=== PATIENT | female | born 1980 | race Caucasian/White ===

== ENCOUNTER 2020-05-21 16:07 | Outpatient (REF) | payer MEDICAID, SELFPAY | END 2020-05-21 16:08 | disposition home or self-care (01) | LOC: HO.LAB 16:07 | PROVIDERS: PCP Nurse Practitioner Family; Visit Provider Internal Medicine | DX: Z20.828 Contact with and (suspected) exposure to other viral communicable diseases (principal) | CPT/HCPCS: C9803; U0003 ==

== ENCOUNTER 2020-06-16 19:51 | Emergency (ER) | payer MEDICAID, SELFPAY ==
[2020-06-16 21:14] VITALS: BP 156/88; PULSE 90; RESP 18; TEMP 37; O2SAT 98
--- NOTE | 2020-06-16 23:36 | ED.GENADULT ---
HPI - General Adult General Chief complaint: General Medical Stated complaint: Flu like symptoms Time Seen by Provider: 06/16/20 23:36 Source: patient Mode of arrival: ambulatory History of Present Illness HPI narrative: This is a 39-year-old female who presents with 1 week of sore throat without fevers, chills, but states she has had a dry cough but no shortness of breath/chest pain/palpitations. She states that she was COVID-19 negative tested last Tuesday but states that her throat remains sore. Related Data Allergies Allergy/AdvReac Type Severity Reaction Status Date / Time naproxen [From NAPROSYN] Allergy Intermediate STOMACH Unverified 02/28/20 15:15 UPSET ibuprofen [From MOTRIN] Allergy Unknown GI UPSET Unverified 02/28/20 15:15 methocarbamol [From ROBAXIN] Allergy Unknown ITCHY Unverified 02/28/20 15:15 Review of Systems Review of Systems: Pertinent positives and negatives as stated in HPI 10 point review systems is otherwise negative. [facility] Past Medical History Source: nursing notes reviewed Medical History Bruna's disease Hypothyroid Social History Social History Advance Directives: No Advance Directives Information Provided: Yes Physical Exam Vital Signs: Vital Signs: Last Vital Signs Temp 98.6 F 06/16/20 21:14 Pulse 92 06/17/20 00:04 Resp 18 06/17/20 00:04 BP 149/75 H 06/17/20 00:04 Pulse Ox 98 06/17/20 00:04 Body Mass Index 3.8 VITAL SIGNS: Reviewed. GENERAL: Well developed, well nourished, in no acute distress. EYES: PERRLA, EOMI intact without pain EARS: Ext canals without abnormality, TMs non-bulging and non-erythematous OROPHARYNX: no oral lesions noted, posterior pharynx clear and erythematous without noted tonsillar enlargement/erythema/exudates NECK: Supple, no adenopathy LUNGS: Normal breath sounds. No adventitious sounds or accessory muscle use. SpO2<98> CARDIOVASCULAR: Regular rate and rhythm without noted murmurs, no JVD or lower extremity edema. ABDOMEN: Soft, non-tender, non-distended with bowel sounds. No rigidity. No guarding. No palpable masses or hernias noted NEUROLOGIC: Alert and oriented x 4. Course Course Course Narrative: 39-year-old female with history and clinical presentation most consistent with viral pharyngitis but will do a rapid strep which was noted to be negative. Patient was advised to use saline gargles and to alternate Tylenol ibuprofen as needed for pain control. And to follow-up with her primary care provider by calling the office in the morning. Discharge Plan Discharge Clinical Impression: Acute viral pharyngitis Patient Disposition: Home, Self-Care Instructions: Pharyngitis (ED) Additional Instructions: 1. Please utilize saline gargles (this can be constructed at home by using warm water and table salt) and gargle for approximately 5-10 minutes 3 to 4 times a day. 2. You can alternate [id number] Tylenol/ibuprofen as needed for additional pain control. 3. Please follow-up with your primary care provider by calling the office in the morning. Referrals: Physician,Unknown [Primary Care Provider] - 2 days (Sore throat)
[2020-06-17 00:04] VITALS: BP 149/75; PULSE 92; RESP 18; O2SAT 98
== END 2020-06-17 01:08 | disposition home or self-care (01) ==
PROVIDERS: Emergency Provider Student in an Organized Health Care Education/Training Program
DX: J02.9 Acute pharyngitis, unspecified (principal)
CPT/HCPCS: 87071; 87880; 99283; 99284

== ENCOUNTER 2020-06-25 16:49 | Outpatient (REF) | payer MEDICAID, SELFPAY | END 2020-06-25 16:50 | disposition home or self-care (01) | LOC: HO.LAB 16:49 | PROVIDERS: Visit Provider Internal Medicine | DX: Z20.822 Contact with and (suspected) exposure to COVID-19 (principal) | CPT/HCPCS: 36415; C9803; U0003 ==

== ENCOUNTER 2020-07-07 16:12 | Outpatient (REF) | payer MEDICAID, SELFPAY | END 2020-07-07 16:13 | disposition home or self-care (01) | LOC: HO.LAB 16:12 | PROVIDERS: Visit Provider Internal Medicine | DX: Z20.822 Contact with and (suspected) exposure to COVID-19 (principal) | CPT/HCPCS: 36415; C9803; U0003 ==

== ENCOUNTER 2020-09-01 15:32 | Outpatient (REF) | payer MEDICAID, SELFPAY | END 2020-09-01 15:33 | disposition home or self-care (01) | LOC: HO.LAB 15:32 | PROVIDERS: Visit Provider Internal Medicine | DX: Z20.822 Contact with and (suspected) exposure to COVID-19 (principal) | CPT/HCPCS: 36415; C9803; U0003; U0005 ==

== ENCOUNTER 2020-09-04 14:37 | Outpatient (REF) | payer MEDICAID, SELFPAY | END 2020-09-04 14:38 | disposition home or self-care (01) | LOC: HO.LAB 14:37 | PROVIDERS: Visit Provider Internal Medicine | DX: Z20.822 Contact with and (suspected) exposure to COVID-19 (principal) | CPT/HCPCS: 36415; C9803; U0003; U0005 ==

== ENCOUNTER 2020-09-26 15:17 | Outpatient (REF) | payer MEDICAID, SELFPAY | END 2020-09-26 15:18 | disposition home or self-care (01) | LOC: HO.LAB 15:17 | PROVIDERS: Visit Provider Internal Medicine | DX: Z20.822 Contact with and (suspected) exposure to COVID-19 (principal) | CPT/HCPCS: C9803; U0003; U0005 ==

== ENCOUNTER 2020-10-08 14:09 | Outpatient (REF) | payer MEDICAID, SELFPAY ==
[2020-10-08 14:49] LABS: COVID-19 Test Negative (Negative); IDNOW Serial# 55D5AD1C
== END 2020-10-08 14:10 | disposition home or self-care (01) ==
LOC: HO.LAB 14:09
PROVIDERS: Visit Provider Internal Medicine
DX: Z20.822 Contact with and (suspected) exposure to COVID-19 (principal)
CPT/HCPCS: 36415; 87635; C9803

== ENCOUNTER 2020-11-07 15:10 | Outpatient (REF) | payer MEDICAID, SELFPAY ==
[2020-11-07 15:31] LABS: COVID-19 Test Negative (Negative)
== END 2020-11-07 15:11 | disposition home or self-care (01) ==
LOC: HO.LAB 15:10
PROVIDERS: Visit Provider Internal Medicine
DX: Z20.822 Contact with and (suspected) exposure to COVID-19 (principal)
CPT/HCPCS: 36415; 87635; C9803

== ENCOUNTER 2021-03-27 15:05 | Outpatient (REF) | payer MEDICAID, SELFPAY ==
[2021-03-27 15:31] LABS: COVID-19 Test Negative (Negative)
== END 2021-03-27 15:06 | disposition home or self-care (01) ==
LOC: HO.LAB 15:05
PROVIDERS: PCP Nurse Practitioner Family; Visit Provider Internal Medicine
DX: Z20.822 Contact with and (suspected) exposure to COVID-19 (principal)
CPT/HCPCS: 36415; 87635; C9803

== ENCOUNTER 2021-04-23 14:32 | Outpatient (REF) | payer MEDICAID, SELFPAY ==
[2021-04-23 14:56] LABS: COVID-19 Test Negative (Negative)
== END 2021-04-23 14:33 | disposition home or self-care (01) ==
LOC: HO.LAB 14:32
PROVIDERS: PCP Nurse Practitioner Family; Visit Provider Internal Medicine
DX: Z20.822 Contact with and (suspected) exposure to COVID-19 (principal)
CPT/HCPCS: 36415; 87635; C9803

== ENCOUNTER → 2021-09-09 09:28 | Outpatient (BNVA) | payer MEDICAID, SELFPAY | PROVIDERS: PCP Nurse Practitioner Family; Referring Provider Nurse Practitioner Family; Visit Provider Physician Assistant | DX: Z13.89 Encounter for screening for other disorder (principal) ==

== ENCOUNTER → 2021-09-30 08:00 | Outpatient (BNVA) | payer MEDICAID, SELFPAY | PROVIDERS: PCP Nurse Practitioner Family; Visit Provider Surgery | DX: Z13.89 Encounter for screening for other disorder (principal) ==

== ENCOUNTER 2021-10-05 | Outpatient (REF) | payer MEDICAID, SELFPAY ==
[2021-10-06 14:58] LABS: H Pylori Breath Test Positive (Negative)
== END 2021-10-05 00:01 | disposition home or self-care (01) ==
LOC: HO.LNP
PROVIDERS: Visit Provider Surgery
DX: E03.9 Hypothyroidism, unspecified (principal); E06.3 Autoimmune thyroiditis; K21.9 Gastro-esophageal reflux disease without esophagitis; E66.01 Morbid (severe) obesity due to excess calories
CPT/HCPCS: 83013

== ENCOUNTER 2021-10-05 10:43 | Outpatient (REF) | payer MEDICAID, SELFPAY ==
--- NOTE | ~2021-10-05 | XR_ITS ---
EXAMINATION: XR CHEST CLINICAL INFORMATION: Bariatric service evaluation. E66.01. COMPARISON: Chest radiographs 01/08/2019, 10/27/2017 TECHNIQUE: 2 views of the chest were obtained. FINDINGS: The lungs are clear. The vascularity is normal. The heart is normal in size. There is no airspace opacity or effusion. The hilar and mediastinal contours and bony structures are unremarkable. XR/XR chest 2V IMPRESSION: Unremarkable examination.
--- NOTE | 2021-10-05 10:55 | ECG_ITS ---
Test Reason : OBESITY Blood Pressure : / mmHG Vent. Rate : 061 BPM Atrial Rate : 061 BPM P-R Int : 154 ms QRS Dur : 092 ms QT Int : 436 ms P-R-T Axes : 017 038 012 degrees QTc Int : 438 ms Normal sinus rhythm Normal ECG When compared with ECG of 08-JAN-2019 17:09, No significant change was found Referred By: Henrik Dasilva Electronically Signed By:MIKEY STERN
[2021-10-05 11:08] LABS: MANUAL DIFF FLAG NO
[2021-10-05 11:55] LABS: Eosinophils Absolute Auto 0.1 X10*3/uL (0.0-0.4); Eosinophils Percent Auto 1.2 % (0-4); Hematocrit 40.2 % (37.0-47.0); Hemoglobin 13.6 g/dl (12.0-16.0); Imm Gran Abs Auto 0.02 X10*3/uL (0.00-0.03); Imm Gran Pct Auto 0.4 % (0.0-0.4); Lymphocytes Absolute Auto 1.8 X10*3/uL (1.2-4.9); Lymphocytes Percent Auto 36.5 % (20-40); Mean Corpuscular HGB Conc 33.8 g/dl (31.0-35.0); Mean Corpuscular Hemoglobin 30.4 pg (27.0-33.0); Mean Corpuscular Volume 89.7 fL (80.0-98.0); Mean Platelet Volume 9.9 fL (9.4-12.3); Monocytes Absolute Auto 0.3 X10*3/uL (0.1-1.2); Neutrophils Absolute Auto 2.9 x10*3/uL (2.0-8.3); Neutrophils Percent Auto 56.9 % (45-73); Platelet Count 172 X10*3/uL (160-400); Red Blood Count 4.48 X10*6/uL (4.20-5.50); Red Cell Distribution Width 12.5 % (11.0-16.0)
[2021-10-05 11:56] LABS: Estimated Average Glucose 91 mg/dL; Hemoglobin A1c % 4.8 %
[2021-10-05 12:37] LABS: Alanine Aminotransferase 34 U/L (0-31); Albumin Level 4.1 g/dL (3.5-5.0); Alkaline Phosphatase 100 U/L (39-117); Anion Gap 9 (12-20); Aspartate Amino Transferase 26 U/L (5-31); Bilirubin Total 0.7 mg/dL (0.0-1.0); Blood Urea Nitrogen 6 mg/dL (9-16); C Reactive Protein 0.61 mg/dL (< or = 0.50); Calcium 9.1 mg/dL (8.4-10.2); Carbon Dioxide 31 mmol/L (22-29); Chloride 106 mmol/L (96-108); Cholesterol 178 mg/dL; Estimated Glomerular Filt Rate > 60; Glucose Random 119 mg/dL (60-115); HDL Cholesterol 39 mg/dL; Iron 110 mcg/dL (30-160); LDL Cholesterol Calculated 126 mg/dl; Percent Iron Saturation 36 % (15-50); Potassium 3.8 mmol/L (3.3-5.1); Sodium 142 mmol/L (135-145); Total Iron Binding Capacity 308 mcg/dL (228-428); Total Protein 7.2 g/dL (6.5-8.0); Triglycerides 69 mg/dL; Unsaturated Iron Binding 198 ug/dL
[2021-10-05 13:10] LABS: Ferritin 81 ng/mL (10-250); TSH reflex Free T4 0.94 uIU/mL (0.32-4.0); Vitamin D 25-OH Total 16.5 ng/mL (>30)
[2021-10-05 13:15] LABS: Folate 12.6 ng/mL (> or = 4.0); Vitamin B12 263 pg/mL (200-900)
[2021-10-05 13:36] LABS: Insulin 41 uU/mL (2-29)
[2021-10-06 11:27] LABS: Calcium (PTHI) 8.9 mg/dL (8.6-10.2); PTHI 70 pg/mL (16-77)
[2021-10-09 06:12] LABS: Vitamin B1 9 nmol/L (8-30)
[2021-10-09 13:47] LABS: Zinc 70 mcg/dL (60-130)
[2021-10-09 21:11] LABS: Vitamin A 37 mcg/dL (38-98)
== END 2021-10-05 10:44 | disposition home or self-care (01) ==
LOC: HO.LAB 10:43
PROVIDERS: PCP Nurse Practitioner Family; Visit Provider Surgery
DX: Z01.818 Encounter for other preprocedural examination (principal); E66.01 Morbid (severe) obesity due to excess calories; E03.9 Hypothyroidism, unspecified; E06.3 Autoimmune thyroiditis; K21.9 Gastro-esophageal reflux disease without esophagitis; Z11.0 Encounter for screening for intestinal infectious diseases
CPT/HCPCS: 36415; 71046; 80053; 80061; 82306; 82607; 82728; 82746; 83013; 83036; 83525; 83540; 83970; 84425; 84443; 84590; 84630; 85025; 86140; 93005; 99211

== ENCOUNTER → 2021-10-12 11:00 | Outpatient (BNVA) | payer OTHER, SELFPAY | PROVIDERS: PCP Nurse Practitioner Family; Visit Provider Counselor Mental Health | DX: F33.0 Major depressive disorder, recurrent, mild (principal); E03.9 Hypothyroidism, unspecified; E66.01 Morbid (severe) obesity due to excess calories | CPT/HCPCS: 90791 ==

== ENCOUNTER → 2021-10-13 08:08 | Outpatient (BNVA) | payer MEDICAID, SELFPAY | PROVIDERS: PCP Nurse Practitioner Family; Visit Provider Dietitian, Registered | DX: E66.01 Morbid (severe) obesity due to excess calories (principal) | CPT/HCPCS: 97802 ==

== ENCOUNTER 2023-01-11 15:01 | Emergency (ER) | payer MEDICAID, SELFPAY ==
--- NOTE | ~2023-01-11 | XR_ITS ---
EXAMINATION: XR CHEST CLINICAL INFORMATION: Cough. COMPARISON: 10/05/2021 chest radiographs. TECHNIQUE: 2 views of the chest were obtained. FINDINGS: No significant abnormality is noted involving the heart, lungs, mediastinum, bony thorax or soft tissues. XR/XR chest 2V IMPRESSION: No acute cardiopulmonary process.
[2023-01-11 15:33] VITALS: BP 175/94; PULSE 77; RESP 20; TEMP 36.8; O2SAT 98; BMI 40.2
--- NOTE | 2023-01-11 15:34 | ED.SOB ---
HPI - SOB/Dyspnea General Chief Complaint: Upper Respiratory Symptoms Stated Complaint: bronchitis? Time Seen by Provider: 01/11/23 15:52 Source: patient and RN notes reviewed Mode of arrival: ambulatory Limitations: no limitations History of Present Illness HPI Narrative: this is a 42-year-old female presenting to the emergency department with complaints of productive cough x1.5 weeks. Patient reports that she has had hacking cough which has been keeping her up at night. She also admits to having ear pain, headaches chest wall pain which only occurs with coughing. She denies any fevers, chills, palpitations, shortness of breath, abdominal pain, nausea, vomiting, or diarrhea. She was seen by an urgent care facility last week and was prescribed inhaler however she was unable to pick this up at the pharmacy because she has been feeling so tired. Denies any sick contacts. No other complaints or concerns at this time MD elicited complaint: shortness of breath and cough Timing: constant Severity: moderate Exacerbating factors: nothing Relieving factors: nothing Associated symptoms: denies other symptoms Treatment prior to arrival: none Related Data Home Medications Medication Instructions Recorded Confirmed levothyroxine 88 mcg tablet 88 mcg PO DAILY 09/09/21 09/30/21 Previous Rx's Medication Instructions Recorded amoxicillin 500 mg capsule 500 mg PO Q12H #28 caps 10/07/21 cholecalciferol (vitamin D3) 125 125 mcg PO DAILY #30 caps 10/07/21 mcg (5,000 unit) capsule clarithromycin 500 mg tablet 500 mg PO Q12H #28 tabs 10/07/21 mecobalamin (vitamin B12) 1,000 1,000 mcg sublingual DAILY #30 tabs 10/07/21 mcg disintegrating tablet,sublingual omeprazole 40 mg capsule,delayed 40 mg PO DAILY #14 caps 10/07/21 release benzonatate 200 mg capsule 200 mg PO TID PRN cough #14 caps 01/11/23 Allergies Allergy/AdvReac Type Severity Reaction Status Date / Time naproxen [From NAPROSYN] Allergy Intermediate STOMACH Verified 09/30/21 09:25 UPSET ibuprofen [From MOTRIN] Allergy Unknown GI UPSET Verified 09/30/21 09:25 methocarbamol [From ROBAXIN] Allergy Unknown ITCHY Verified 09/30/21 09:25 Review of Systems Review of Systems: Yes all other systems are reviewed and are negative Constitutional: Constitutional: Reports as per [facility] [place] Past Medical History Attestation statement: The following information was validated with the patient. Medical History Anxiety Back pain GERD (gastroesophageal reflux disease) Bruna's disease Hypothyroid Morbid obesity Surgical History Hx of section Hx of cholecystectomy Hx of hysterectomy Hx of removal of cyst Hx of tubal ligation Family History Family History Mother Lung disease Thyroid condition Father AIDS Brother No problems noted. Sister Thyroid condition Son No problems noted. Son No problems noted. Son No problems noted. Social History Social History Alcohol intake: never Patient Tobacco Use Status: Former Tobacco user Advance Directives: No Advance Directives Information Provided: No Physical Exam Vital Signs: Vital Signs: Last Vital Signs Temp 98.3 F 01/11/23 15:33 Pulse 77 01/11/23 15:33 Resp 20 01/11/23 15:33 BP 175/94 H 01/11/23 15:33 Pulse Ox 98 01/11/23 15:33 BMI result Body Mass Index 40.2 Const: General: cooperative, comfortable and no acute distress Orientation/consciousness: patient oriented x3 Limitations: no limitations HEENT: Head: Yes normal to inspection, Yes normocephalic and Yes atraumatic Ears: hearing grossly normal bilaterally and TM's normal bilaterally General nose exam: Normal external nose present Face and sinus: Yes normal facial exam Mouth: Normal oral and palatal mucosa present, oropharynx normal and moist mucous membranes Throat: Yes posterior oropharynx normal Eyes: General: appearance normal, both eyes and all related structures Eyelids: Yes eyelids normal Conjunctivae: conjunctivae normal Sclerae: sclerae normal Pupils: Equal, round and reactive pupils present EOM: EOMs intact bilaterally Neck: Neck: Yes normal visual inspection, Yes full ROM and Yes no lymphadenopathy Lymphatic: no lymphadenopathy noted Chest: Other: anterior chest wall tenderness to palpation. Chest palpation & inspection: normal inspection of the chest Resp: Effort & Inspection: normal respiratory effort and able to speak in complete sentences Auscultation: clear to auscultation bilaterally, no crackles, no rales, no rhonchi and no wheezes Cardio: Rate: regular rate Rhythm: regular rhythm Heart sounds: S1 normal heart sound present and S2 normal heart sound present GI: Other: Abdomen is soft, nontender, nondistended Inspection: Yes normal to inspection Skin: General skin exam: no rashes or lesions noted Trauma: no lacerations or abrasions Wounds: no wounds Neuro: General: patient oriented x3 and moves all extremities Cranial nerves: Yes Equal, round and reactive pupils present Extrem: General: Yes normal to inspection Right upper extremity: normal to inspection Left upper extremity: normal to inspection Right lower extremity: normal to inspection Left lower extremity: normal to inspection Course Course Course Narrative: RME - 42 yo female presents to the ER for evaluation of SOB, productive cough and chest pain for the last 5 days. Seen at Urgent Care and was told she had bronchitis, had negative COVID and Flu. Chest pain is when she coughs only and is central. Plan: CXR, EKG, viral swabs Medical Decision Making Medical Decision Making [facility] Narrative: this is a 42-year-old female presenting to the emergency department for evaluation of cold symptoms x1 and half weeks. On arrival, patient is mildly hypertensive at 175/94. X-ray the chest normal, EKG normal sinus rhythm with no ST elevation or depression, viral swabs were collected. I do not suspect underlying cardiopulmonary process given presentation. Lungs are clear to auscultation, oropharynx without any pharyngeal erythema or tonsillar hypertrophy. Symptoms consistent with viral URI And costochondritis, will treat symptomatically with Tessalon. patient reports that she does not tolerate NSAIDs well, discussed with patient this is the ideal treatment for costochondritis, however encouraged to take Tylenol for relief. Encouraged to drink plenty of fluids and get plenty of rest. Given strict return precautions. Patient understands and agrees with plan. Patient stable for discharge. Differential Diagnosis Differential Diagnoses: The differential diagnosis associated with the presentation includes Upper respiratory infection, bronchitis, pneumonia, COVID, flu Lab Data [facility] Lab Attestation statement: I reviewed the patient's lab results. negative COVID, flu Labs: Lab Results 01/11/23 01/11/23 Range/Units 15:49 15:49 COVID-19 (GILBERT) Negative (Negative) COVID-19 Clin Com See Note Influenza Type A (HIRAM) Negative (Negative) Influenza Type B (HIRAM) Negative (Negative) Influenza A & B Note See Note Independent Interpretation Interpretation: EKG normal sinus rhythm at a ventricular rate of 73 beats per minute, IN interval 162, QTC 447. No ST elevation or depression. Radiology Impression Discussion of test interpretation with radiology: I have reviewed the radiologist's reading. Radiologist Impression: EXAMINATION: XR CHEST CLINICAL INFORMATION: Cough. COMPARISON: 10/05/2021 chest radiographs. TECHNIQUE: 2 views of the chest were obtained. FINDINGS: No significant abnormality is noted involving the heart, lungs, mediastinum, bony thorax or soft tissues. XR/XR chest 2V IMPRESSION: No acute cardiopulmonary process. Dictated By: Abdoul Shepard MD Signed By: <Electronically signed Discharge Plan Discharge Clinical Impression: Upper respiratory infection, viral, Acute costochondritis Patient Disposition: Home, Self-Care Instructions: Costochondritis (ED), Upper Respiratory Infection (ED) Additional Instructions: You tested negative for COVID and flu today. Your chest x-ray did not show a pneumonia. Your EKG was reassuring. Please take prescribed medication as directed. Take Ibuprofen/Tylenol as directed as needed for symptomatic relief. Drink plenty of fluids and get plenty of rest. Hot tea with lemon and soup can also help with your symptoms. If any new or worsening symptoms occur including but not limited to worsening chest pain, shortness of breath, fevers, chills, or any other concerning symptoms please return for re-evaluation. Prescriptions: New benzonatate 200 mg capsule 200 mg PO TID PRN (Reason: cough) Qty: 14 0RF No Action mecobalamin (vitamin B12) 1,000 mcg tablet,disintegrating 1,000 mcg sublingual DAILY Qty: 30 2RF Rx Instructions: place tablet under tongue and allow to dissolve for at least30 secs before swallowing cholecalciferol (vitamin D3) 125 mcg (5,000 unit) capsule 125 mcg PO DAILY Qty: 30 2RF omeprazole 40 mg capsule,delayed release(DR/EC) 40 mg PO DAILY Qty: 14 0RF amoxicillin 500 mg capsule 500 mg PO Q12H Qty: 28 0RF clarithromycin 500 mg tablet 500 mg PO Q12H Qty: 28 0RF levothyroxine 88 mcg tablet 88 mcg PO DAILY
--- NOTE | 2023-01-11 15:36 | ECG_ITS ---
Test Reason : chest pain Blood Pressure : / mmHG Vent. Rate : 073 BPM Atrial Rate : 073 BPM P-R Int : 162 ms QRS Dur : 086 ms QT Int : 406 ms P-R-T Axes : 087 032 018 degrees QTc Int : 447 ms Artifact in tracing Normal sinus rhythm Normal ECG When compared with ECG of 05-OCT-2021 10:55, No significant change was found Referred By: Lis Wilburn Electronically Signed By:MIKEY STERN
[2023-01-11 16:34] LABS: COVID-19 Test Negative (Negative); IDNOW Serial# 08D9AD1C; IDNOW Serial# BCCEAD1C; Influenza A Negative (Negative); Influenza B2 Negative (Negative)
== END 2023-01-11 17:30 | disposition home or self-care (01) ==
PROVIDERS: Physician Assistant; Emergency Provider Emergency Medicine; PCP Nurse Practitioner Family
DX: J06.9 Acute upper respiratory infection, unspecified (principal); M94.0 Chondrocostal junction syndrome [Tietze]; Z20.822 Contact with and (suspected) exposure to COVID-19; E66.9 Obesity, unspecified; Z68.41 Body mass index [BMI] 40.0-44.9, adult; Z87.891 Personal history of nicotine dependence; Z79.899 Other long term (current) drug therapy
CPT/HCPCS: 71046; 87502; 87635; 93005; 99283

== ENCOUNTER → 2023-01-11 15:36 | Outpatient (BNV) | payer MEDICAID, SELFPAY | PROVIDERS: Emergency Provider Emergency Medicine; PCP Nurse Practitioner Family; Visit Provider Internal Medicine | DX: R07.9 Chest pain, unspecified (principal) | CPT/HCPCS: 93010 ==

== ENCOUNTER 2023-08-02 08:38 | Emergency (ER) | payer OTHER, MEDICAID, SELFPAY ==
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
--- NOTE | ~2023-08-02 | XR_ITS ---
EXAMINATION: XR HAND, RIGHT CLINICAL INFORMATION: Right ring finger pain COMPARISON: None available. TECHNIQUE: PA, lateral, and oblique views of the right hand. FINDINGS: The bones and soft tissues are normal. No fracture. Alignment is anatomic. Joint spaces are maintained. No erosions or soft tissue calcifications. XR/XR hand RT min 3V IMPRESSION: Normal right hand.
[2023-08-02 08:47] VITALS: BP 183/104; PULSE 65; RESP 19; TEMP 36.6; O2SAT 98; BMI 40.4
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
[2023-08-02 10:56] LABS: MANUAL DIFF FLAG NO
[2023-08-02 10:57] LABS: Basophils Percent Auto 0.1 % (0-2); Eosinophils Absolute Auto 0.1 X10*3/uL (0.0-0.4); Eosinophils Percent Auto 1.1 % (0-4); Hematocrit 43.2 % (37.0-47.0); Hemoglobin 15.1 g/dl (12.0-16.0); Imm Gran Abs Auto 0.03 X10*3/uL (0.00-0.03); Imm Gran Pct Auto 0.4 % (0.0-0.4); Lymphocytes Percent Auto 28.1 % (20-40); Mean Corpuscular Hemoglobin 30.7 pg (27.0-33.0); Mean Corpuscular Volume 87.8 fL (80.0-98.0); Mean Platelet Volume 9.5 fL (9.4-12.3); Monocytes Absolute Auto 0.4 X10*3/uL (0.1-1.2); Monocytes Percent Auto 5.2 % (2-11); Neutrophils Absolute Auto 4.6 x10*3/uL (2.0-8.3); Neutrophils Percent Auto 65.1 % (45-73); Platelet Count 167 X10*3/uL (160-400); Red Blood Count 4.92 X10*6/uL (4.20-5.50); Red Cell Distribution Width 12.2 % (11.0-16.0); White Blood Count 7.1 X10*3/uL (4.8-10.8)
[2023-08-02 10:58] LABS: Amphetamine Screen Urine Not Detected (Not Detect); Barbiturates, Urine Not Detected (Not Detect); Benzodiazepines Screen Urine Not Detected (Not Detect); Cannabinoid Screen Urine Not Detected (Not Detect); Cocaine Screen Urine Not Detected (Not Detect); Fentanyl, urine Not Detected (Not Detect); Opiate Screen Urine Not Detected (Not Detect); Phencyclidine Screen Urine Not Detected (Not Detect)
--- NOTE | 2023-08-02 11:01 | PC.NURSE ---
patient a&ox3, iv inserted, labs drawn, pt was to be medicated per order however, pt refused meds. provider notified, pt awaiting radiology, will continue to monitor
[2023-08-02 11:04] LABS: Appearance Urine Clear; Color Urine Yellow; Glucose Urine UA Negative (Negative); Leukocyte Esterase Urine Negative (Negative); Nitrite Urine Negative (Negative); Urine Blood Negative (Negative); Urine Ketones Negative (Negative); Urine Protein Trace mg/dL (Neg-Trace)
[2023-08-02 11:48] LABS: Ethanol < 10 mg/dL
[2023-08-02 11:57] LABS: Alanine Aminotransferase 42 U/L (0-31); Albumin Level 4.4 g/dL (3.5-5.0); Alkaline Phosphatase 108 U/L (39-117); Anion Gap 13 (12-20); Aspartate Amino Transferase 35 U/L (5-31); Bilirubin Total 0.8 mg/dL (0.0-1.0); Blood Urea Nitrogen 8 mg/dL (9-16); Calcium 9.1 mg/dL (8.4-10.2); Carbon Dioxide 26 mmol/L (22-29); Chloride 107 mmol/L (96-108); Creatinine Clr Calc Pharmacy 101.7; Estimated Glomerular Filt Rate > 60; Glucose Random 93 mg/dL (60-115); HCG Quantitative 3 mIU/mL; Potassium 3.4 mmol/L (3.3-5.1); Sodium 143 mmol/L (135-145); Total Protein 7.9 g/dL (6.5-8.0)
[2023-08-02] MEDS: iohexoL 350 MG/ML 100 ML INFUS..BTL IV (12:40)
[2023-08-02 15:00] VITALS: BP 154/99; PULSE 66; RESP 18; TEMP 36.8; O2SAT 97
== END 2023-08-02 15:10 | disposition home or self-care (01) ==
PROVIDERS: Physician Assistant; Emergency Provider Emergency Medicine; PCP Nurse Practitioner Family
DX: S06.0X0A Concussion without loss of consciousness, initial encounter (principal); S13.4XXA Sprain of ligaments of cervical spine, initial encounter; V43.52XA Car driver injured in collision with other type car in traffic accident, initial encounter; R07.81 Pleurodynia; M54.50 Low back pain, unspecified; M54.6 Pain in thoracic spine; M79.644 Pain in right finger(s); Y93.89 Activity, other specified; Y92.410 Unspecified street and highway as the place of occurrence of the external cause; Y99.9 Unspecified external cause status; Z79.899 Other long term (current) drug therapy
CPT/HCPCS: 36415; 70450; 71260; 72125; 73130; 74177; 80053; 80307; 81003; 83735; 84702; 85025; 96374; 99283; 99284; Q9967